=== PATIENT | male | born 1955 | race Caucasian/White ===

== ENCOUNTER 2016-08-13 13:00 | Outpatient (CLI) | payer OTHER ==
[~2016-08-13 13:00] MED LIST: ASPI-983 PO; ATOR80TA64 PO; CARV12.53 PO; CARV6.25 PO; CEPH500C PO; HYDR-3454 PO; TICA90TA PO
== END 2016-08-13 13:40 | disposition home or self-care (01) ==
LOC: SLEEP 13:00
PROVIDERS: ATTEND Internal Medicine Cardiovascular Disease
DX: G47.10 Hypersomnia, unspecified (principal)

== ENCOUNTER → 2016-08-23 | Outpatient (CLI) | payer OTHER ==
--- NOTE | 2016-08-26 19:57 | ECHOCARDIOGRAPHY REPORT ---
DATE OF SERVICE: 08/23/2016 PROCEDURE Two-D echocardiogram. REFERRING PHYSICIANS: Dr. Victoriano Estrada and Dr. Scotty Clifford. MEASUREMENT: LVID end-diastolic 5.1, IVS thickness 1.2, LVPW thickness 1.2, left atrial diameter 3.5, ejection fraction 60%. FINDINGS: 1. Technical quality is good. 2. The left ventricle is normal in size with normal contractility; systolic function appears to be normal, estimated ejection fraction 60%. 3. The left atrium is normal in size. No clot or thrombus was seen within the left atrium. 4. The right atrium and right ventricle are normal in size. No clot or thrombus was seen within the right side. 5. The mitral valve is normal in morphology with mild mitral regurgitation noted by color Doppler flow. No mitral valve prolapse, no mitral valve stenosis. 6. The aortic valve is trileaflet with normal opening and closing pattern, no significant aortic stenosis or regurgitation was seen. 7. The tricuspid valve is normal in morphology with mild tricuspid regurgitation noted by color Doppler flow. Doppler across tricuspid valve estimated pulmonary artery pressure of 21 plus right atrial pressure. 8. Pulmonic valve is functioning normally. 9. No pericardial effusion. CONCLUSIONS: 1. Normal left ventricular size and systolic function, estimated ejection fraction 60%. 2. Mild mitral and tricuspid regurgitation. 3. Estimated pulmonary artery pressure of 25 to 30 mmHg. Job ID: [id number] DocumentID: [id number] Dictated Date: 08/25/2016 07:50:19 Cottrell Operator Date: 08/25/2016 12:55:40 Dictated By: CONCHIS ALCOCER MD
== END ==
LOC: CARD 13:52
PROVIDERS: ATTEND Internal Medicine Cardiovascular Disease
DX: I47.2 Ventricular tachycardia (principal); I25.10 Atherosclerotic heart disease of native coronary artery without angina pectoris
CPT/HCPCS: 93306

== ENCOUNTER → 2017-01-30 | Outpatient (CLI) | payer OTHER ==
[~2017-01-30] VITALS: Ht 180.3 cm; Wt 94.3 kg
[~2017-01-30] MED LIST changes: +CATHETER FLUSH 10 ML SYR IV PRN
[2017-01-30 09:43] VITALS: BP 151/90
[2017-01-30 09:54] VITALS: BP 196/91
--- NOTE | 2017-01-31 08:01 | STRESS TEST ---
DATE OF SERVICE: 01/30/2017 EXERCISE MYOVIEW STRESS TEST REPORT Baseline heart rate is 53 baseline, blood pressure 154/88, baseline EKG is sinus rhythm with no ischemic changes. IN SUMMARY: The patient was injected with 10.13 mCi of technetium-99 Myoview and the resting images were obtained. Then, the patient started exercising with a baseline heart rate, blood pressure and EKG mentioned above. At minute 9 and 30 seconds, the patient was injected with 29.7 mCi of technetium-99 Myoview. He was able to exercise for a total of 10 minutes and 20 seconds on standard Leandro protocol, achieving maximum heart rate of 135 with blood pressure 196/91. With peak exercise level, EKG was showing abnormality involving [address] depression in II, III, aVF and [address] elevation in AVR and V1, [address] depression in V4, V5 and V6. During recovery, heart rate and blood pressure returned to baseline. EKG returned to baseline. The resting and stress images were reviewed and compared in the short axis, horizontal long axis, and vertical long axis views. Review of the images showed diaphragmatic attenuation with typical male pattern with no significant ischemia or infarction. SSS is 0. TID value is 0.97. On the gaited images, the left ventricle appeared to be normal size with normal contractility. Calculated ejection fraction 56%. IN CONCLUSION: 1. Excellent exercise tolerance a total of 10 minutes 20 seconds on standard Leandro protocol, achieving 95% of maximum expected heart rate, total of 12.1 METS. 2. EKG changes noted with peak exercise level mainly nondiagnostic. Returned to baseline during recovery. 3. Hypertensive response to exercise returned to baseline during recovery. 4. Diaphragmatic attenuation affecting the quality of the images, overall there is no significant ischemia on SPECT images. 5. Normal left ventricular size with normal contractility. Calculated ejection fraction 56%. Job ID: [id number] DocumentID: [id number] Dictated Date: 01/30/2017 15:29:21 Fundraising Specialist Date: 01/31/2017 00:37:06 Dictated By: CONCHIS ALCOCER MD
== END ==
LOC: CARD 07:43
PROVIDERS: ATTEND Internal Medicine Cardiovascular Disease
DX: I25.10 Atherosclerotic heart disease of native coronary artery without angina pectoris (principal); I48.0 Paroxysmal atrial fibrillation; I10 Essential (primary) hypertension; I47.2 Ventricular tachycardia; E78.2 Mixed hyperlipidemia; R06.02 Shortness of breath
CPT/HCPCS: 78452; 93017

== ENCOUNTER 2017-03-19 06:01 | Outpatient (CLI) | payer OTHER ==
[~2017-03-19] VITALS: Ht 180.3 cm; Wt 93.0 kg
[~2017-03-19 06:01] MED LIST changes: -CATHETER FLUSH 10 ML SYR IV PRN
[2017-03-19] MEDS ORDERED: LISI10TA2 PO (09:36)
[2017-03-19] MEDS ORDERED: CARV12.53 PO (09:36)
== END 2017-03-19 09:39 ==
LOC: PREOP 06:01
PROVIDERS: ATTEND Surgery
DX: Z01.818 Encounter for other preprocedural examination (principal); Z12.11 Encounter for screening for malignant neoplasm of colon

== ENCOUNTER 2017-03-25 09:23 | Day surgery (SDC) | payer OTHER ==
[~2017-03-25] VITALS: Ht 180.3 cm; Wt 93.0 kg
[~2017-03-25 09:23] MED LIST changes: +LISI10TA2 PO
[2017-03-25 09:35] VITALS: BP 129/90
[2017-03-25] MEDS ORDERED: LACTATED RINGERS 1,000 ML IV PRN (09:45)
[2017-03-25] MEDS ORDERED: LACTATED RINGERS 1,000 ML IV ONE (09:51)
[2017-03-25] MEDS ORDERED: MIDAZOLAM 2 MG/2 ML (VERSED) VIAL ONE (12:23)
[2017-03-25] MEDS ORDERED: proPOfol 200 MG/20 ML (DIPRIVAN) VIAL IV ONE (12:23)
--- NOTE | 2017-03-25 12:23 | Progress Note-Pre Operative ---
Pre-Operative Progress Note H&P Reviewed The H&P was reviewed, patient examined and no changes noted. Date Seen by Provider: Mar 25, 2017 Time Seen by Provider: 12:23 Date H&P Reviewed: Mar 25, 2017 Time H&P Reviewed: 12:23 Pre-Operative Diagnosis: screening colonoscopy ERICA BROUSSARD DO Mar 25, 2017 12:23
--- NOTE | 2017-03-25 12:41 | Progress Note-Post Operative ---
Post-Operative Progess Note Surgeon (s)/Cytogenetic Technician (s) Surgeon ERICA BROUSSARD DO Cytogenetic Technician: na Pre-Operative Diagnosis screening colonoscopy Post-Operative Diagnosis diverticulosis Procedure & Operative Findings Date of Procedure 03/25/17 Procedure Performed/Findings colonoscopy Anesthesia Type per [facility] Estimated Blood Loss Estimated blood loss (mL): none Specimens/Packing Specimens Removed na EIRCA BROUSSARD DO Mar 25, 2017 12:41
--- NOTE | 2017-03-25 12:42 | Discharge Inst-Simple/Standard ---
Discharge Inst-Standard Patient Instructions/Follow Up Plan of Care/Instructions/FU: 5 years repeat colonoscopy, any problems before that be re-evaluated at that time. Activity as Tolerated: Yes Discharge Diet: Regular Diet (high fiber) ERICA BROUSSARD DO Mar 25, 2017 12:42
[2017-03-25 13:15] VITALS: BP 122/63
[2017-03-25 13:40] VITALS: BP 127/75
--- NOTE | 2017-03-26 04:05 | OPERATIVE REPORT ---
DATE OF SERVICE: 03/25/2017 PREOPERATIVE DIAGNOSIS: Screening colonoscopy. POSTOPERATIVE DIAGNOSIS: Diverticulosis. PROCEDURE: Colonoscopy. ANESTHESIA: Per MDA. ESTIMATED BLOOD LOSS: None. COMPLICATIONS: None. INDICATIONS: The patient is a 62-year-old male in need for screening colonoscopy. He has history of colon polyps. He understands risks and benefits and wished to proceed with procedure. Consent was signed in the chart. DESCRIPTION OF PROCEDURE: The patient was taken to the endoscopy suite, placed in left lateral recumbent position. Timeout was performed. Digital rectal exam was performed and there were no palpable polyps, mass or ulcerations. The scope was inserted in the rectum and advanced all the way to the cecum with minimal difficulty. The prep was adequate. Scope was then slowly retracted back. No polyps, masses or ulcerations in the cecum, ascending, transverse, descending colon. Within the descending and sigmoid colon, a fair amount of diverticulosis is present. There are no polyps, masses or ulcerations. Scope was continued to be withdrawn until the rectum where it was also retroflexed noting no other pathology. Scope was returned to its normal position, slowly withdrawn until completely removed. The patient tolerated procedure well without any complications. He was taken to the recovery room in stable condition. RECOMMENDATIONS: The patient will need repeat colonoscopy in 5 years. If he has any problems prior to that, he should be reevaluated at that time. He is also recommended to eat a high fiber diet. Job ID: [id number] DocumentID: [id number] Dictated Date: 03/25/2017 21:29:04 Galvanizer Date: 03/26/2017 04:04:33 Dictated By: ERICA BROUSSARD DO
== END 2017-03-25 13:45 | disposition home or self-care (01) ==
LOC: ENDO 09:23
PROVIDERS: ATTEND Surgery
DX: Z12.11 Encounter for screening for malignant neoplasm of colon (principal); K57.30 Diverticulosis of large intestine without perforation or abscess without bleeding; Z79.02 Long term (current) use of antithrombotics/antiplatelets; Z79.899 Other long term (current) drug therapy; Z79.82 Long term (current) use of aspirin; I48.91 Unspecified atrial fibrillation; I25.10 Atherosclerotic heart disease of native coronary artery without angina pectoris; I10 Essential (primary) hypertension; E78.5 Hyperlipidemia, unspecified

== ENCOUNTER → 2019-02-20 | Outpatient (CLI) | payer MEDICARE, OTHER ==
[~2019-02-20] MED LIST changes: -HYDR-3454 PO; +HYDR-3455 PO; +OXYC-471 PO
--- NOTE | 2019-02-20 19:01 | Diagnostic Imaging Report ---
EXAMINATION: Magnetic resonance imaging of the left shoulder without contrast. DATE: February 20, 2019. COMPARISON: None. HISTORY: 63-year-old male, left shoulder pain. TECHNIQUE: Magnetic resonance imaging sequences were performed of the shoulder without contrast. FINDINGS: ROTATOR CUFF, LIGAMENTS, TENDONS, AND MUSCLES: There are two anchors in the superior humeral head in the region of the supraspinatus tendon insertion, consistent with prior rotator cuff tendon repair. There is a full-thickness tear of the supraspinatus tendon with tendon retraction near the level of the glenoid measuring 4.0 cm. There is infraspinatus tendinopathy. The teres minor tendon is intact. There is thinning of the subscapularis tendon and likely an interstitial split tear of the subscapularis tendon. There is normal rotator cuff muscle bulk and signal. LONG HEAD OF BICEPS: The long head of biceps tendon is not well seen either in the bicipital groove or in its intra-articular segment. The long head biceps tendon may potentially be torn and retracted below the level of the bicipital groove. GLENOHUMERAL JOINT: The humeral head is well positioned relative to the glenoid. Sensitivity for detection of labral tear is reduced given lack of fluid sensitive axial sequence. There is no definite discrete labral tear. There is no identified paralabral cyst. There is a 2-3 mm focal near full-thickness cartilage defect of the humeral head best illustrated on coronal T2 fat saturation sequence image 11. The additional articular cartilage is grossly intact. There is no joint effusion. ACROMIOCLAVICULAR JOINT: The acromioclavicular joint is normally aligned. The coracoclavicular and coracoacromial ligaments are intact. There are moderate acromioclavicular degenerative changes with osteophytes extending approximately 2 mm below the joint margin. BONE: There is no os acromiale. There is no acute fracture, bone contusion or evidence of osteonecrosis. BURSAE AND SOFT TISSUES: There is fluid in the subacromial subdeltoid bursa which may relate to the full-thickness rotator cuff tendon tear, bursitis, and/or recent injection. IMPRESSION: 1. Status post rotator cuff tendon repair of the supraspinatus tendon with a full-thickness full width tear of the supraspinatus tendon and tendon retraction near the level of the glenoid measuring 4.0 cm. No fatty muscle atrophy. Interstitial split tear of the subscapularis tendon. Infraspinatus tendinopathy. 2. The long head biceps tendon is not identified in its intra-articular segment or within the bicipital groove. The tendon may be torn and retracted below the level of the bicipital groove. 3. Mild acromioclavicular degenerative changes with 2 mm undersurface osteophytes. 4. Grossly intact labrum on limited assessment. Focal cartilage defect of the humeral head and minimal glenohumeral arthritis. 5. No acute fracture, bone contusion or evidence of osteonecrosis. 6. Fluid in the subacromial subdeltoid bursa correlating to the full-thickness rotator cuff tendon tear, bursitis, and/or recent injection. Dictated by: Dictated on workstation # [id number]
== END ==
LOC: RAD 15:25
PROVIDERS: ATTEND Orthopaedic Surgery
DX: M75.122 Complete rotator cuff tear or rupture of left shoulder, not specified as traumatic (principal); M19.012 Primary osteoarthritis, left shoulder; M25.712 Osteophyte, left shoulder; M94.8X1 Other specified disorders of cartilage, shoulder; Z98.890 Other specified postprocedural states
CPT/HCPCS: 73221

== ENCOUNTER → 2019-03-11 | Outpatient (CLI) | payer MEDICARE, OTHER ==
[~2019-03-11] VITALS: Ht 180 cm; Wt 96.0 kg
[~2019-03-11] MED LIST changes: +CATHETER FLUSH 10 ML SYR IV PRN; -OXYC-471 PO
[2019-03-11 14:02] VITALS: BP 213/76
--- NOTE | 2019-03-12 09:21 | STRESS TEST ---
DATE OF SERVICE: 03/11/2019 EXERCISE MYOVIEW STRESS TEST REPORT Baseline heart rate is 59, baseline blood pressure 147/80. Baseline EKG is sinus rhythm with no ischemic changes. In summary, the patient was injected with 10.84 mCi of technetium-99 Myoview and the resting images were obtained. Then, he started exercising with a baseline heart rate, blood pressure and EKG mentioned above. He was able to exercise for 9 minutes and 50 seconds on standard Leandro protocol. With peak exercise level, EKG was showing [address] depression in II, III, aVF, V4, V5 and V6. With peak exercise level, blood pressure was 233/61. The patient was injected with 30.0 mCi of technetium-99 Myoview. During recovery, heart rate and blood pressure returned to baseline. EKG returned to baseline. The resting and stress images were reviewed and compared in the short axis, horizontal long axis, and vertical long axis views. Review of the images showed good radiotracer uptake with no significant ischemia or infarction on SPECT images. SSS is 2, SDS 2, TID value 0.97. On the gated images, the left ventricle appeared to be normal size with normal contractility. Calculated ejection fraction 62%. REFERRING PHYSICIAN: Dr. Scotty Clifford and Dr. Harley Fox. CONCLUSION: 1. Excellent exercise tolerance for a total of 9 minutes and 50 seconds on standard Leandro protocol, total of 11.3 METS. Achieving 96% of maximum expected heart rate. 2. Hypertensive response to exercise, returned to baseline during recovery with peak blood pressure 233/61. 3. Nondiagnostic EKG changes with exercise returned to baseline during recovery. 4. Diaphragmatic attenuation with typical male pattern with no significant ischemia or infarction on SPECT images. 5. Normal left ventricular size with normal contractility. Calculated ejection fraction is 62%. Job ID: [id number] DocumentID: [id number] Dictated Date: 03/12/2019 06:52:36 Hydraulic Jack Operator Date: 03/12/2019 09:20:13 Dictated By: CONCHIS ALCOCER MD
== END ==
LOC: CARD 12:15
PROVIDERS: ATTEND Physician Assistant
DX: I25.10 Atherosclerotic heart disease of native coronary artery without angina pectoris (principal); E78.5 Hyperlipidemia, unspecified; I10 Essential (primary) hypertension; I48.91 Unspecified atrial fibrillation
CPT/HCPCS: 78452; 93017; 93306

== ENCOUNTER 2019-04-02 13:24 | Outpatient (CLI) | payer MEDICARE, OTHER ==
[~2019-04-02] VITALS: Ht 180 cm; Wt 98.3 kg
[~2019-04-02 13:24] MED LIST changes: -CATHETER FLUSH 10 ML SYR IV PRN
[2019-04-02 13:33] VITALS: BP 114/70
== END 2019-04-02 13:42 | disposition home or self-care (01) ==
LOC: PREOP 13:24
PROVIDERS: ATTEND Orthopaedic Surgery
DX: Z01.818 Encounter for other preprocedural examination (principal)
CPT/HCPCS: 87081

== ENCOUNTER 2019-04-08 08:31 | Day surgery (SDC) | payer MEDICARE, OTHER ==
--- NOTE | 2019-03-26 12:16 | HISTORY AND PHYSICAL ---
DATE OF SERVICE: ADMISSION HISTORY AND PHYSICAL This will be for outpatient surgery on 04/08/2019 for left shoulder arthroscopy with rotator cuff repair. HISTORY: The patient is a 64-year-old right hand dominant gentleman who previously underwent left rotator cuff repair. He has been having progressive left shoulder pain and weakness for the last several months. He has undergone treatment with injections as well as rest and activity modifications. Due to functional impairment and failure to improve with conservative measures, the patient elected to proceed with surgical intervention. An MRI revealed a 4 cm retracted supraspinatus tear. REVIEW OF SYSTEMS: No chest pain, no shortness of breath, no dysuria. PAST MEDICAL HISTORY: Coronary artery disease, actinic keratosis, hypertension. PAST SURGICAL HISTORY: Left cardiac catheterization, implantable manufacturing plant technician. FAMILY HISTORY: Significant for stroke and lung cancer. PRIMARY CARE PROVIDER: Dr. Clifford. MEDICATIONS: Aspirin, atorvastatin, carvedilol, lisinopril. ALLERGIES: No known drug allergies. SOCIAL HISTORY: The patient denies alcohol and tobacco use. PHYSICAL EXAMINATION: GENERAL: The patient is well developed, well nourished, in no acute distress. HEENT: Normocephalic, atraumatic. Pupils are equal, round and reactive to light. Oropharynx is clear. NECK: Supple, no lymphadenopathy. LUNGS: Clear to auscultation bilaterally. HEART: Regular rate and rhythm. ABDOMEN: Soft, nontender, nondistended. EXTREMITIES: The left shoulder demonstrates weakness with abduction and external rotation. He has full forward elevation, external and internal rotation, but positive Neer's and positive Hawkin sign. He has negative drop arm. He has negative Spurling's. Sensation is intact throughout his left upper extremity. IMPRESSION: Left rotator cuff tear. PLAN: Left shoulder arthroscopy with rotator cuff repair. The risks, benefits, options, ramifications and recovery were discussed at length with the patient. He understands and wishes to proceed. Job ID: [id number] DocumentID: [id number] Dictated Date: 03/26/2019 11:39:59 Surveillance Agent Date: 03/26/2019 12:14:49 Dictated By: SANTOS BOLAÑOS MD
[2019-04-08] VITALS (12 sets, daily range): BP systolic 101–152; BP diastolic 67–94
[~2019-04-08] VITALS: Ht 180 cm; Wt 98.3 kg
[2019-04-08] MEDS ORDERED: ceFAZolin INJECTION 1,000 MG in WATER (STERILE) FOR INJECTION 10 ML IV ONE (08:45)
[2019-04-08] MEDS ORDERED: BUPIVACAINE 0.25% 30 ML (SENSORCAINE) VIAL ONE ×2 (08:52→09:22)
[2019-04-08] MEDS ORDERED: fentaNYL INJECTION 100 MCG/2 ML AMP ONE (08:52)
[2019-04-08] MEDS ORDERED: MIDAZOLAM 2 MG/2 ML (VERSED) VIAL ONE (08:54)
[2019-04-08] MEDS: LACTATED RINGERS 1,000 ML IV PRN ×2 (09:00→10:47)
--- NOTE | 2019-04-08 09:15 | Progress Note-Pre Operative ---
Pre-Operative Progress Note H&P Reviewed The H&P was reviewed, patient examined and no changes noted. Date Seen by Provider: Apr 08, 2019 Time Seen by Provider: 09:00 Date H&P Reviewed: Apr 08, 2019 Time H&P Reviewed: 09:15 Pre-Operative Diagnosis: left rotator cuff tear SANTOS BOLAÑOS MD Apr 08, 2019 09:15
--- NOTE | 2019-04-08 09:16 | Progress Note-Post Operative ---
Post-Operative Progess Note Surgeon (s)/Customer Service Sales Consultant (s) Surgeon SANTOS BOLAÑOS MD Customer Service Sales Consultant: Nicholas Hogan Pre-Operative Diagnosis left rotator cuff tear Post-Operative Diagnosis left rotator cuff tear Procedure & Operative Findings Date of Procedure 04/08/19 Procedure Performed/Findings left shoulder diagnostic arthroscopy and open rotator cuff repair Anesthesia Type GETA Estimated Blood Loss Estimated blood loss (mL): minimal Specimens/Packing Specimens Removed none Packing: none SANTOS BOLAÑOS MD Apr 08, 2019 09:16
[2019-04-08] MEDS ORDERED: morphine PF (DURAMORPH) 10 MG/10 ML AMP ONE (09:22)
[2019-04-08] MEDS ORDERED: oxyCODONE/APAP 5/325MG (PERCOCET 5) TABLET PO PRN (09:30)
[2019-04-08] MEDS ORDERED: proPOfol 200 MG/20 ML (DIPRIVAN) VIAL IV ONE (10:26)
[2019-04-08] MEDS ORDERED: ROCURONIUM 10 MG/ML 5 ML SYRINGE IV ONE (10:26)
[2019-04-08] MEDS ORDERED: LIDOCAINE PF 2% 5 ML (XYLOCAINE) VIAL ONE (10:26)
[2019-04-08] MEDS ORDERED: SEVOFLURANE (ULTANE) 15 ML INHAL SOLN ONE ×8 (10:26→11:59)
[2019-04-08] MEDS ORDERED: PHENYLEPHRINE 100 MCG/ML 10 ML (ANESTHESIA) SYR ONE (11:32)
[2019-04-08] MEDS ORDERED: OXYC-471 PO (12:24)
[2019-04-08] MEDS ORDERED: CATHETER FLUSH 10 ML SYR IV PRN (15:00)
--- NOTE | 2019-04-08 19:32 | OPERATIVE REPORT ---
DATE OF SERVICE: PREOPERATIVE DIAGNOSIS: Left shoulder rotator cuff tear. POSTOPERATIVE DIAGNOSIS: Left shoulder rotator cuff tear. PROCEDURES: 1. Left shoulder open rotator cuff repair. 2. Left shoulder diagnostic arthroscopy. SURGEON: Harley Bolaños MD PRE FABRICATOR: ARIANNA Aranda, who assisted throughout the procedure and closed the incisions. ANESTHESIA: General endotracheal plus interscalene nerve block by Arlette Fatima CRNA. ESTIMATED BLOOD LOSS: Minimal. DRAINS: None. COMPLICATIONS: None. POSTOPERATIVE PLAN: Routine protocol with passive range of motion for 4 weeks and sling wear for 4 weeks. The patient was transferred to the recovery room awake and stable condition. STATEMENT OF MEDICAL NECESSITY: The patient is a 64-year-old right hand dominant gentleman who previously underwent left rotator cuff repair who had been doing well until the last several months when he began experiencing increasing shoulder pain and weakness. An MRI confirmed a left rotator cuff tear. He tried injections, anti-inflammatories and rest without relief and due to functional impairment and failure to improve with conservative measures, the patient elected to proceed with surgical intervention. Examination under anesthesia revealed forward elevation of 170 degrees, external rotation of 90 degrees and internal rotation of 80 degrees. Arthroscopic findings demonstrated a full thickness supraspinatus tear with retraction involving the superior aspect of the supraspinatus and subscapularis. The biceps anchor was absent. There was no significant glenoid or humeral head articular wear. DESCRIPTION OF PROCEDURE: After risks and benefits of procedure were discussed and questions were answered, an informed consent was signed and placed on chart, the operative site was confirmed in the preoperative holding area initialed by the surgeon. The patient was then transferred to the operating room. After adequate levels of regional plus general endotracheal anesthetic were obtained, a timeout was called, confirming the operative site. Examination under anesthesia was performed with above findings noted. The left shoulder and upper extremity were prepped and draped in the usual sterile fashion. Shoulder joint was injected with 20 mL of fluid and standard posterior portal was placed. A diagnostic arthroscopy was carried out with the above findings noted. The shoulder joint was copiously irrigated and the portal sites were closed with 4-0 nylon in simple interrupted fashion. The previous incision was utilized on the lateral aspect of the shoulder. Previous sutures were placed and the deltoid were removed and a deltoid split was performed. The rotator cuff tear was mobilized and two anchors were placed, which brought the posterior leaf and the anterior leaf superiorly into an anatomic position with an excellent repair obtained. This was performed using modified Patrice-Pb repair. The repair was stable. The wound was copiously irrigated. The deltoid was repaired in a [id number] fashion using #2 FiberWire in [id number] interrupted fashion. The wound was further irrigated. A 3-0 Vicryl was used to reapproximate subcutaneous tissue and skin was closed with 4-0 nylon in a running alternating horizontal mattress fashion. Shoulder joint was injected with Duramorph. The portal sites were infiltrated with plain Marcaine and soft dressing and sling were applied. The patient was transferred to the recovery room awake and in stable condition. Job ID: [id number] DocumentID: [id number] Dictated Date: 04/08/2019 11:04:08 Exploration Geologist Date: 04/08/2019 19:31:59 Dictated By: HARLEY BOLAÑOS MD
--- NOTE | 2019-04-09 10:22 | Anesthesia-General Post-Op ---
General Post Op Complications Complications None Follow Up Care/Instructions Patient Instructions None needed. Anesthesia/Patient Condition Patient Condition late note from 04/08/19 at 1300: Patient is doing well, no complaints, stable vital signs, no apparent adverse anesthesia problems. No complications reported per nursing, thus the patient was discharged to home. JEWELL JUAREZ CRNA Apr 09, 2019 10:22
== END 2019-04-08 14:00 | disposition home or self-care (01) ==
LOC: SDC 08:31
PROVIDERS: ATTEND Orthopaedic Surgery
DX: S46.012A Strain of muscle(s) and tendon(s) of the rotator cuff of left shoulder, initial encounter (principal); I25.10 Atherosclerotic heart disease of native coronary artery without angina pectoris; I10 Essential (primary) hypertension; E78.5 Hyperlipidemia, unspecified; Z79.82 Long term (current) use of aspirin; Z95.1 Presence of aortocoronary bypass graft; Z79.899 Other long term (current) drug therapy; Z80.1 Family history of malignant neoplasm of trachea, bronchus and lung; Z82.3 Family history of stroke

== ENCOUNTER → 2020-01-08 | Outpatient (CLI) | payer MEDICARE, OTHER ==
[~2020-01-08] MED LIST changes: +ASPI-1238 PO; -ASPI-983 PO; +OXYC-471 PO
--- NOTE | 2020-01-08 14:13 | Diagnostic Imaging Report ---
PROCEDURE: CT lumbar spine without contrast. TECHNIQUE: Multiple contiguous axial images were obtained through the lumbar spine without the use of intravenous contrast. Sagittal and coronal reformations were then performed. Auto Exposure Controls were utilized during the CT exam to meet ALARA standards for radiation dose reduction. INDICATION: Left-sided sciatica. COMPARISON: No prior studies are available for comparison. FINDINGS: There is some straightening of the normal lumbar lordotic curvature. Alignment appears normal. Vertebral body heights are maintained. No fracture is identified. There is generalized degenerative disc disease with variable disc space narrowing and marginal spurring. It is most prominent at L4-L5 level. There are reactive changes in the endplates at the L2-L3 and L4-L5 levels. Paraspinous tissues are unremarkable. IMPRESSION: Lumbar spondylosis. No acute bony abnormality is detected. Dictated by: Dictated on workstation # [id number]
== END ==
LOC: RAD 12:47
PROVIDERS: ATTEND Internal Medicine
DX: M47.816 Spondylosis without myelopathy or radiculopathy, lumbar region (principal)
CPT/HCPCS: 72131

== ENCOUNTER → 2020-05-23 | Outpatient (CLI) | payer MEDICARE, OTHER ==
[~2020-05-23] VITALS: Ht 180 cm; Wt 91.0 kg
[~2020-05-23] MED LIST changes: +BAMLANIVIMAB (NON FORM) 700 MG in NS (IVPB) 250 ML IV ONE; +EPINEPHrine INJECTION 1 MG/ML AMP IM PRN; -LISI10TA2 PO; +LISI10TA25 PO; -OXYC-471 PO; +OXYC1TAB11 PO; +diphenhydrAMINE 50 MG/ML INJ (BENADRYL) IV PRN
[2020-05-23 12:57] VITALS: BP 164/88
[2020-05-23 14:54] VITALS: BP 140/88
== END ==
LOC: INFUSION 12:57
PROVIDERS: ATTEND Physician Assistant
DX: U07.1 COVID-19 (principal); I25.10 Atherosclerotic heart disease of native coronary artery without angina pectoris; I10 Essential (primary) hypertension

== ENCOUNTER 2021-02-02 07:00 | Outpatient (CLI) | payer MEDICARE, OTHER ==
[~2021-02-02] VITALS: Ht 180.3 cm; Wt 91.0 kg
[~2021-02-02 07:00] MED LIST changes: -BAMLANIVIMAB (NON FORM) 700 MG in NS (IVPB) 250 ML IV ONE; -EPINEPHrine INJECTION 1 MG/ML AMP IM PRN; -diphenhydrAMINE 50 MG/ML INJ (BENADRYL) IV PRN
[2021-02-06] MEDS ORDERED: APIX5TAB PO (11:35)
[2021-02-06] MEDS ORDERED: ASCO500C17 PO (11:36)
[2021-02-06] MEDS ORDERED: ROSU10TA28 PO (11:38)
== END 2021-02-08 14:49 | disposition home or self-care (01) ==
LOC: PREOP 07:00
PROVIDERS: ATTEND Specialist
DX: Z01.818 Encounter for other preprocedural examination (principal)

== ENCOUNTER 2021-02-10 06:01 | Day surgery (SDC) | payer MEDICARE, OTHER ==
[~2021-02-10] VITALS: Ht 180.3 cm; Wt 91.0 kg
[~2021-02-10 06:01] MED LIST changes: +APIX5TAB PO; +ASCO500C17 PO; +ROSU10TA28 PO
[2021-02-10] MEDS ORDERED: POVIDONE (BETADINE) OPHTH SOLN 5% 30 ML OP ONE (06:15)
[2021-02-10] MEDS ORDERED: MOXIFLOXACIN OPHTH SOLN 5 MG/ML 0.3 ML SYRINGE OP ONE (06:15)
[2021-02-10] MEDS ORDERED: LIDOCAINE PF 1% 2 ML VIAL IR PRN (06:15)
[2021-02-10] MEDS ORDERED: TIMOLOL MALEATE 0.5% 5 ML (TIMOPTIC) BTL OU PRN (06:15)
[2021-02-10 06:16] VITALS: BP 157/88
[2021-02-10] MEDS: TETRACAINE 0.5% OPHTH SOLN 4 ML BTL (SINGLE DOSE ONLY) OU PRN ×4 (06:24→06:48)
[2021-02-10] MEDS: PHENYLEPHRINE 10% OPHTH (NEO-SYN) 5 ML BTL OU SCH ×3 (06:37→06:48)
[2021-02-10] MEDS: TROPICAMIDE 1% OPH SOLN (MYDRIACYL) 15 ML BTL OP SCH ×3 (06:37→06:48)
[2021-02-10] MEDS ORDERED: MIDAZOLAM 2 MG/2 ML (VERSED) VIAL ONE (06:50)
--- NOTE | 2021-02-10 06:52 | Ophthalmologist Pre-Op Note ---
Pre-Operative Progress Note H&P Reviewed The H&P was reviewed, patient examined and no changes noted. Date H&P Reviewed: Feb 10, 2021 Time H&P Reviewed: 06:52 Pre-Op Dx Cataract, Right Eye JEFF MCCALLUM MD Feb 10, 2021 06:52
--- NOTE | 2021-02-10 07:24 | Ophthalmology Operative Report ---
Cataract removal/placement IOL PREOPERATIVE DIAGNOSIS: Cataract Right Eye POSTOPERATIVE DIAGNOSIS: Cataract Right Eye PROCEDURE: Cataract removal and placement of posterior chamber implant, right eye SURGEON: Sonny Mccallum ANESTHESIA: Topical with sedation COMPLICATIONS: None ESTIMATED BLOOD LOSS: Minimal DESCRIPTION OF PROCEDURE: After proper informed consent was obtained, the patient, a 65 male, was taken to the Operating Room and the right eye was anesthetized with tetracaine. The right eye was then prepped and draped in the usual manner. A wire lid speculum was placed. A paracentesis was made at the left hand position. Preservative free lidocaine was injected into the anterior chamber followed by viscoelastic. A clear corneal incision was made in the temporal position. A capsulorrhexis was preformed and the central nuclear and cortical material were removed. The posterior capsule was polished and Redd 20.0 AU00T0 IOL was placed into the capsular bag. The residual viscoelastic was aspirated and balanced saline solution was injected into the anterior chamber. Moxifloxacin was injected into the anterior chamber. The wound was checked and found to be water tight. The patient tolerated the procedure well without complications. SONNY MCCALLUM MD Feb 10, 2021 07:24
--- NOTE | 2021-02-10 07:28 | Anesthesia-General Post-Op ---
MAC Patient Condition Mental Status/LOC: Same as Preop Cardiovascular: Satisfactory Nausea/Vomiting: Absent Respiratory: Satisfactory Pain: Controlled Complications: Absent Post Op Complications Complications None Follow Up Care/Instructions Patient Instructions None needed. Anesthesiology Discharge Order Discharge Order Patient is doing well, no complaints, stable vital signs, no apparent adverse anesthesia problems. No complications reported per nursing. IRON COMBS CRNA Feb 10, 2021 07:28
[2021-02-10] MEDS ORDERED: acetaZOLAMIDE ER 500 MG CAP (DIAMOX SEQUELS) PO ONE (07:30)
[2021-02-10 07:33] VITALS: BP 127/78
== END 2021-02-10 07:35 | disposition home or self-care (01) ==
LOC: SDC 06:01
PROVIDERS: ATTEND Specialist
DX: H25.11 Age-related nuclear cataract, right eye (principal); I10 Essential (primary) hypertension; E78.00 Pure hypercholesterolemia, unspecified; E78.5 Hyperlipidemia, unspecified; I25.119 Atherosclerotic heart disease of native coronary artery with unspecified angina pectoris; Z95.5 Presence of coronary angioplasty implant and graft; Z79.01 Long term (current) use of anticoagulants; Z79.82 Long term (current) use of aspirin; Z79.899 Other long term (current) drug therapy
CPT/HCPCS: 66984; V2632

== ENCOUNTER → 2021-09-05 | Outpatient (CLI) | payer MEDICARE, OTHER | LOC: CARD 08:41 | PROVIDERS: ATTEND Physician Assistant | DX: I11.9 Hypertensive heart disease without heart failure (principal); I34.0 Nonrheumatic mitral (valve) insufficiency | CPT/HCPCS: 93306 ==

== ENCOUNTER 2021-09-06 09:30 | Day surgery (SDC) | payer MEDICARE, OTHER ==
[~2021-09-06] VITALS: Ht 180 cm; Wt 88.0 kg
[~2021-09-06 09:30] MED LIST changes: +LIDOCAINE 1% INJ 20 ML VIAL INJ ONE
[2021-09-06 09:42] VITALS: BP 121/75
[2021-09-06] MEDS ORDERED: LIDOCAINE 1% INJ 20 ML VIAL ONE (10:08)
--- NOTE | 2021-09-06 10:53 | Implantation of Loop Monitor ---
Implant of Loop Monitior IMPLANTATION OF LOOP MONITOR REPORT DATE OF PROCEDURE: 09/06/21 PREOP DIAGNOSIS: Paroxysmal atrial fibrillation POSTOP DIAGNOSIS: Paroxysmal atrial fibrillation PROCEDURE DETAILS: The patient is a 66 male with history of paroxysmal atrial fibrillation requiring long-term surveillance. Therefore implantable loop recorder was discussed and agreed with the patient. Informed consent was taken. All risks and complications were discussed at length. The patient was draped and prepped in the usual sterile fashion. Local anesthesia was lidocaine, which was given in the substernal area close to the 4th intercostal space. Loop monitor [employer] with serial number [id number] was implanted according to the protocol. Steri- Strips were placed at the end of the procedure. There were no complications and the patient tolerated the procedure well. ANESTHESIA: Local anesthesia with lidocaine. COMPLICATIONS: None CONTRAST/FLUOROSCOPY: None CONCLUSION: Successful implantation of loop monitor with no complication FINAL DIAGNOSIS: Paroxysmal atrial fibrillation Palpitation Hypertension CONCHIS ALCOCER MD September 06, 2021 10:53
== END 2021-09-06 11:34 | disposition home or self-care (01) ==
LOC: CATH 09:30
PROVIDERS: ATTEND Internal Medicine Cardiovascular Disease
DX: I48.0 Paroxysmal atrial fibrillation (principal); R00.2 Palpitations; I10 Essential (primary) hypertension; I65.23 Occlusion and stenosis of bilateral carotid arteries; I25.10 Atherosclerotic heart disease of native coronary artery without angina pectoris; E78.2 Mixed hyperlipidemia; E66.9 Obesity, unspecified; Z68.27 Body mass index [BMI] 27.0-27.9, adult; Z95.5 Presence of coronary angioplasty implant and graft; Z79.01 Long term (current) use of anticoagulants; Z79.899 Other long term (current) drug therapy; Z79.82 Long term (current) use of aspirin
CPT/HCPCS: 33285; C1764

== ENCOUNTER → 2021-10-09 | Outpatient (CLI) | payer MEDICARE, OTHER ==
[~2021-10-09] VITALS: Ht 180 cm; Wt 88.0 kg
[~2021-10-09] MED LIST changes: +CATHETER FLUSH 10 ML SYR IVP PRN; -LIDOCAINE 1% INJ 20 ML VIAL INJ ONE
[2021-10-09 09:54] VITALS: BP 170/95
--- NOTE | 2021-10-09 12:06 | Cardiology Stress Test Report ---
Stress Test Report Date of Procedure/Referring: Date of Procedure: Oct 09, 2021 PCP Taylor Clifford DO Admitting Physician Admitting Physician: Attending Physician: Yesenia Payton Indications: Palp Baseline Heart Rate: 55 Baseline Blood Pressure: Blood Pressure Systolic: 170 Blood Pressure Diastolic: 95 Vital Signs Date Time Temp Pulse Resp B/P (MAP) Pulse Ox O2 Delivery O2 Flow Rate FiO2 10/09/21 09:54 52 16 170/95 (120) 98 Room Air Baseline Vital Signs Vital Signs Date Time Temp Pulse Resp B/P (MAP) Pulse Ox O2 Delivery O2 Flow Rate FiO2 10/09/21 09:54 52 16 170/95 (120) 98 Room Air Baseline EKG: Baseline EKG: NSR Summary: After explaining the procedure and details to the patient, he signed the consent and was brought to the stress nuclear laboratory. Patient exercised on standard Leandro protocol, EKG, heart rate and blood pressure were monitored continuously, resting and stress doses of radio tracer were in jected, imaging was acquired and reviewed in the short axis, horizontal long axis and vertical long axis views Patient was able to exercise for a total of 9 minutes on Leandro protocol, METs 10.5 Maximum heart rate 126 Maximum blood pressure 218/105 Stress EKG, Minimal nondiagnostic changes Recovery EKG, Return to baseline TID: 0.99 SSS: 1 SDS: 1 EF: 64 Conclusion: 1. Fair exercise tolerance for a total of 9 minutes on standard Leandro protocol, 10.1 METS achieving 82% of maximal expected heart rate 2. Appropriate heart rate response to exercise with hypertensive response to exercise peak blood pressure 218/105 return to baseline during recovery 3. Nondiagnostic EKG changes with exercise return to baseline during recovery 4. No ischemia or infarction noted on SPECT images 5. Normal left ventricular size, ejection fraction 64% Copy Copies To 1: TAYLOR CLIFFORD BASHAR J MD Oct 09, 2021 12:06
== END ==
LOC: CARD 08:15
PROVIDERS: ATTEND Physician Assistant
DX: R00.2 Palpitations (principal); I10 Essential (primary) hypertension
CPT/HCPCS: 78452; 93017; A9502

== ENCOUNTER 2022-01-10 04:12 | Observation (INO) | payer MEDICARE, OTHER ==
[~2022-01-10] VITALS: Ht 180.3 cm; Wt 92.6 kg
[~2022-01-10 04:12] MED LIST changes: -CATHETER FLUSH 10 ML SYR IVP PRN
--- NOTE | 2022-01-10 04:37 | ED General ---
General Chief Complaint: Chest Pain Stated Complaint: CP Source of Information: Patient Exam Limitations: No Limitations (ANN-MARIE PARDO DO) History of Present Illness Date Seen by Provider: Jan 10, 2022 Time Seen by Provider: 04:24 Initial Comments 66-year-old male with history of intermittent paroxysmal atrial fibrillation, has a Linq device implanted presents for palpitations. He states he felt his heart racing since about 9 PM last night. He is actually close to calling an ambulance due to his symptoms but ended up driving here this morning instead. During his drive here his symptoms seem to have abated. Denies any chest pain or shortness of breath. He did have some palpitations and some lightheadedness during the time of his symptoms. He denies any recent illness including fevers chills nausea or vomiting. Does have remote history of cardiac stents about 5 years ago. He is taking Xarelto as his advised that she will episode of atrial fibrillation back in November. He was previously on amiodarone but stopped this after cataract surgery in November of last year. (ANN-MARIE PARDO DO) Allergies and Home Medications Allergies Coded Allergies: No Known Drug Allergies (Verified , 03/25/17) Patient Home Medication List Home Medication List Reviewed: Yes (ANN-MARIE PARDO DO) Apixaban (Eliquis) 5 Mg Tablet, 5 MG PO BID, (Reported) Entered as Reported by: SANDOR BRAGA on 02/06/21 1135 Ascorbic Acid (Vitamin C) 500 Mg Capsule, 500 MG PO, (Reported) Entered as Reported by: SANDOR BRAGA on 02/06/21 1136 Aspirin (Aspirin EC) 81 Mg Tablet.dr, 81 MG PO DAILY, (Reported) Entered as Reported by: VICKI BRIGHT on 02/15/16 0837 Carvedilol (Carvedilol) 12.5 Mg Tablet, 12.5 MG PO BID, (Reported) Entered as Reported by: SAMMY CASPER on 03/19/17 0936 Lisinopril (Lisinopril) 10 Mg Tablet, 10 MG PO DAILY, (Reported) Entered as Reported by: SAMMY CASPER on 03/19/17 0936 Rosuvastatin Calcium (Rosuvastatin Calcium) 10 Mg Tablet, 10 MG PO DAILY, (Reported) Entered as Reported by: SANDOR BRAGA on 02/06/21 1138 Review of Systems Review of Systems Constitutional: no symptoms reported EENTM: no symptoms reported Respiratory: no symptoms reported Cardiovascular: palpitations Gastrointestinal: no symptoms reported Genitourinary: no symptoms reported Musculoskeletal: no symptoms reported Skin: no symptoms reported Psychiatric/Neurological: No Symptoms Reported Hematologic/Lymphatic: No Symptoms Reported Immunological/Allergic: no symptoms reported (CHAR,ANN-MARIE Laura KILPATRICK) Past Auwcasm-Npfpzs-Vbzlwf Hx Patient Social History Tobacco Use?: No Use of E-Cig and/or Vaping dev: No Substance use?: No Alcohol Use?: No (CHAR,ANN-MARIEPERCY Sanchez DO) Immunizations Up To Date Tetanus Booster (TDap): More than 5yrs PED Vaccines UTD: No (CHAR,ANN-MARIE Laura KILPATRICK) Seasonal Allergies Seasonal Allergies: No (CHARANN-MARIE Laura KILPATRICK) Past Medical History Surgeries: Yes (shoulder, foot sx, umb and ing hernia) Abdominal, Cardiac, Coronary Stent, Orthopedic Respiratory: No Cardiac: Yes (X2 CARDIAC STENTS) Coronary Artery Disease, Heart Attack, High Cholesterol, Hypertension Neurological: No Reproductive Disorders: No Sexually Transmitted Disease: No HIV/AIDS: No Genitourinary: No Gastrointestinal: Yes Polyps Musculoskeletal: Yes Arthritis Endocrine: No HEENT: No Loss of Vision: Bilateral Hearing Impairment: Denies Cancer: No Psychosocial: No Integumentary: No Blood Disorders: No Adverse Reaction/Blood Tranf: No (CHARANNM-ARIE Laura KILPATRICK) Family Medical History Reviewed Nursing Family Hx (CHAR,ANN-MARIE Laura KILPATRICK) FH: Parkinson's disease 19 MOTHER FH: lung cancer 19 FATHER FH: rheumatoid arthritis G8 BROTHER FH: stroke 19 MOTHER High cholesterol 19 FATHER G8 BROTHER Hypertension G8 BROTHER Parkinson's disease 19 MOTHER Valvular heart disease 19 MOTHER No Pertinent Family Hx (CHAR,ANN-MARIE Laura KILPATRICK) Physical Exam Vital Signs Vital Signs - First Documented 01/10/22 04:20 Temp 36.8 Pulse 64 Resp 18 B/P (MAP) 139/111 (120) Pulse Ox 98 O2 Delivery Room Air (VITO MARTINEZ MD) Vital Signs Capillary Refill : (CHARANN-MARIE Laura KILPATRICK) Height, Weight, BMI Height: 5'11.00" Weight: 205lbs. 0.0oz. [id number]; 27.16 BMI Method:Stated General Appearance: No Apparent Distress, WD/WN HEENT: PERRL/EOMI, Normal ENT Inspection, Pharynx Normal Neck: Full Range of Motion, Normal Inspection, Non Tender, Supple Respiratory: Chest Non Tender, Lungs Clear, Normal Breath Sounds, No Accessory Muscle Use, No Respiratory Distress Cardiovascular: Regular Rate, Rhythm, No Edema, No Gallop, No JVD, No Murmur, Normal Peripheral Pulses Gastrointestinal: Normal Bowel Sounds, No Organomegaly, No Pulsatile Mass, Non Tender, Soft Extremity: Normal Capillary Refill, Normal Inspection, Normal Range of Motion, Non Tender, No Calf Tenderness Neurologic/Psychiatric: Alert, Oriented x3, No Motor/Sensory Deficits Skin: Normal Color, Warm/Dry (Pixia) Progress/Results/Core Measures Suspected Sepsis SIRS Temperature: Pulse: Respiratory Rate: Laboratory Tests 01/10/22 04:30: White Blood Count 8.1 Blood Pressure / Mean: Laboratory Tests 01/10/22 04:30: Creatinine 1.10, Platelet Count 277, Total Bilirubin 0.6 (Pixia) Results/Orders Lab Results Laboratory Tests Test 01/10/22 04:30 01/10/22 07:07 Range/Units White Blood Count 8.1 4.3-11.0 10^3/uL Red Blood Count 5.15 4.30-5.52 10^6/uL Hemoglobin 15.0 13.3-17.7 g/dL Hematocrit 45 40-54 % Mean Corpuscular Volume 88 80-99 fL Mean Corpuscular Hemoglobin 29 25-34 pg Mean Corpuscular Hemoglobin Concent 33 32-36 g/dL Red Cell Distribution Width 13.2 10.0-14.5 % Platelet Count 277 130-400 10^3/uL Mean Platelet Volume 9.5 9.0-12.2 fL Immature Granulocyte % (Auto) 0 % Neutrophils (%) (Auto) 58 42-75 % Lymphocytes (%) (Auto) 28 12-44 % Monocytes (%) (Auto) 11 0-12 % Eosinophils (%) (Auto) 2 0-10 % Basophils (%) (Auto) 1 0-10 % Neutrophils # (Auto) 4.6 1.8-7.8 10^3/uL Lymphocytes # (Auto) 2.3 1.0-4.0 10^3/uL Monocytes # (Auto) 0.9 0.0-1.0 10^3/uL Eosinophils # (Auto) 0.2 0.0-0.3 10^3/uL Basophils # (Auto) 0.1 0.0-0.1 10^3/uL Immature Granulocyte # (Auto) 0.0 0.0-0.1 10^3/uL Sodium Level 143 135-145 MMOL/L Potassium Level 3.9 3.6-5.0 MMOL/L Chloride Level 106 98-107 MMOL/L Carbon Dioxide Level 23 21-32 MMOL/L Anion Gap 14 5-14 MMOL/L Blood Urea Nitrogen 14 7-18 MG/DL Creatinine 1.10 0.60-1.30 MG/DL Estimat Glomerular Filtration Rate 73 BUN/Creatinine Ratio 13 Glucose Level 115 H 70-105 MG/DL Calcium Level 9.0 8.5-10.1 MG/DL Corrected Calcium 8.8 8.5-10.1 MG/DL Magnesium Level 2.1 1.6-2.4 MG/DL Total Bilirubin 0.6 0.1-1.0 MG/DL Aspartate Amino Transf (AST/SGOT) 22 5-34 U/L Alanine Aminotransferase (ALT/SGPT) 27 0-55 U/L Alkaline Phosphatase 75 40-136 U/L Troponin I 0.040 H 0.042 H <0.028 NG/ML Total Protein 7.2 6.4-8.2 GM/DL Albumin 4.2 3.2-4.5 GM/DL (VITO MARTINEZ MD) Vital Signs/I&O 01/10/22 04:20 Temp 36.8 Pulse 64 Resp 18 B/P (MAP) 139/111 (120) Pulse Ox 98 O2 Delivery Room Air (VITO MARTINEZ MD) Vital Signs/I&O Capillary Refill : (ANN-MARIE PARDO DO) Progress Note : Time: 08:16 Progress Note Patient reassessed after second troponin showed a very minimal increase of 0.04 to 0.042. He described that all night long he was uncomfortable, describing what he said was a "indigestion" type feeling in the center of his chest that was nonradiating. The patient also states that a couple of days ago he [place] the [place] office when he felt some shortness of breath. On review of the medical record his last heart cath was in 2016 and it did indicate 50 to 60% blockage in the right coronary artery. He did also have a stress test about a month ago that was read as negative however in light of known coronary disease and the positive troponin even with his A. fib, RVR I think it would be prudent to admit the patient for evaluation by cardiology. Patient is comfortable with this plan. Will discuss with Dr. Butler as Dr. Mix is out. (VITO MARTINEZ MD) ECG Comment Sinus rhythm with a rate of 61 bpm. Left axis deviation. Normal intervals. No ST or T wave abnormalities. No ectopy. (ANN-MARIE PARDO DO) Departure Communication (Admissions) Time/Spoke to Admitting Phy: 08:25 Noam Time/Spoke to Consulting Phy: 08:[address] Mix (VITO MARTINEZ MD) Impression Primary Impression: Palpitations Additional Impression: Elevated troponin Disposition: ADMITTED INPATIENT Condition: Stable Admissions Decision to Admit Reason: Admit from ER (General) Decision to Admit/Date: Jan 10, 2022 Time/Decision to Admit Time: 08:21 (VITO MARTINEZ MD) Departure-Patient Inst. Referrals: TAYLOR MARTI DO (PCP/Family) Primary Care Physician Patient Instructions: Atrial Fibrillation (DC) Add. Discharge Instructions: Continue home medications as previously prescribed. Call your anodic treater office today for further recommendations and follow-up. Return to the emergency department for any severe dizziness, lightheadedness chest pain or if your symptoms change in any way otherwise concerning to you. All discharge instructions reviewed with patient and/or family. Voiced understanding. ANN-MARIE PARDO DO Jan 10, 2022 04:37 VITO MARTINEZ MD Jan 10, 2022 08:22
[2022-01-10 04:43] LABS: BASOPHILS # (AUTO) 0.1 10^3/uL (0.0-0.1); BASOPHILS % (AUTO) 1 % (0-10); EOSINOPHILS # (AUTO) 0.2 10^3/uL (0.0-0.3); EOSINOPHILS % (AUTO) 2 % (0-10); HEMATOCRIT 45 % (40-54); LYMPHOCYTES # (AUTO) 2.3 10^3/uL (1.0-4.0); LYMPHOCYTES % (AUTO) 28 % (12-44); MEAN CORPUSCULAR HEMOGLOBIN 29 pg (25-34); MEAN CORPUSCULAR HGB CONC 33 g/dL (32-36); MEAN CORPUSCULAR VOLUME 88 fL (80-99); MEAN PLATELET VOLUME 9.5 fL (9.0-12.2); MONOCYTES # (AUTO) 0.9 10^3/uL (0.0-1.0); MONOCYTES % (AUTO) 11 % (0-12); NEUTROPHILS # (AUTO) 4.6 10^3/uL (1.8-7.8); NEUTROPHILS % (AUTO) 58 % (42-75); PLATELET COUNT 277 10^3/uL (130-400); WHITE BLOOD COUNT 8.1 10^3/uL (4.3-11.0)
[2022-01-10 04:55] LABS: ALBUMIN 4.2 GM/DL (3.2-4.5); POTASSIUM 3.9 MMOL/L (3.6-5.0)
[2022-01-10 04:57] LABS: TOTAL PROTEIN 7.2 GM/DL (6.4-8.2)
[2022-01-10 04:59] LABS: BILIRUBIN,TOTAL 0.6 MG/DL (0.1-1.0)
[2022-01-10 05:01] LABS: CREATININE SERUM 1.1 MG/DL (0.60-1.30)
[2022-01-10 05:04] LABS: MAGNESIUM 2.1 MG/DL (1.6-2.4)
[2022-01-10] MEDS ORDERED: DRONEDARONE 400 MG TABLET PO STA (10:46)
--- NOTE | 2022-01-10 10:47 | Consultation-Cardiology ---
HPI-Cardiology Cardiology Consultation Date of Consultation 01/10/22 Date of Admission Time Seen by Provider: 10:32 Indication: AFib HPI Patient is a 66 y/o male with history of CAD, PAF, NSVT. Presented to the ER with complaints of palpitations and racing heart since approx 10pm last night. By the time he arrived to ER, episode had resolved. Denies any chest pain, dyspnea, dizziness. Loop interrogation done in ER showing episode of afib, onset at approx 10pm last night, lasting for over 5 hours with average V. rate of 130. Patient reports he is now feeling much improved and asking to go home. Home Medications & Allergies Allergies: Coded Allergies: No Known Drug Allergies (Verified , 03/25/17) Home Medication List Reviewed: Yes VQC-Cxqvae-Sbsupl Hx Patient Social History Marital Status: single Employed/Student: employed Smoking Status: Never a Smoker 2nd Hand Smoke Exposure: No Recent Hopitalizations: No Have you traveled recently?: No Alcohol Use?: No Substance type: Marijuana Immunizations Up To Date Tetanus Booster (TDap): More than 5yrs Date of Pneumonia Vaccine: Feb 05, 2013 Date of Influenza Vaccine: Feb 20, 2019 Past Medical History CAD, PAF, NSVT, HTN Family Medical History Significant Family History: No Pertinent Family Hx Family History: FH: Parkinson's disease 19 MOTHER FH: lung cancer 19 FATHER FH: rheumatoid arthritis G8 BROTHER FH: stroke 19 MOTHER High cholesterol 19 FATHER G8 BROTHER Hypertension G8 BROTHER Parkinson's disease 19 MOTHER Valvular heart disease 19 MOTHER Review of Systems-General Review of Systems Constitutional: no symptoms reported, see HPI; No chills, No diaphoresis EENTM: see HPI, no symptoms reported Respiratory: no symptoms reported; No cough, No dyspnea on exertion Cardiovascular: see HPI, Hx of Intervention, palpitations; No syncope; vascular heart diseas Gastrointestinal: no symptoms reported Genitourinary: no symptoms reported Musculoskeletal: no symptoms reported, see HPI Skin: no symptoms reported Psychiatric/Neurological: No Symptoms Reported Reviewed Test Results Reviewed Test Results Lab Laboratory Tests 01/10/22 04:30: White Blood Count 8.1, Red Blood Count 5.15, Hemoglobin 15.0, Hematocrit 45, Mean Corpuscular Volume 88, Mean Corpuscular Hemoglobin 29, Mean Corpuscular Hemoglobin Concent 33, Red Cell Distribution Width 13.2, Platelet Count 277, Mean Platelet Volume 9.5, Immature Granulocyte % (Auto) 0, Neutrophils (%) (Auto) 58, Lymphocytes (%) (Auto) 28, Monocytes (%) (Auto) 11, Eosinophils (%) (Auto) 2, Basophils (%) (Auto) 1, Neutrophils # (Auto) 4.6, Lymphocytes # (Auto) 2.3, Monocytes # (Auto) 0.9, Eosinophils # (Auto) 0.2, Basophils # (Auto) 0.1, Immature Granulocyte # (Auto) 0.0, Sodium Level 143, Potassium Level 3.9, Chloride Level 106, Carbon Dioxide Level 23, Anion Gap 14, Blood Urea Nitrogen 14, Creatinine 1.10, Estimat Glomerular Filtration Rate 73, BUN/Creatinine Ratio 13, Glucose Level 115H, Calcium Level 9.0, Corrected Calcium 8.8, Magnesium Level 2.1, Total Bilirubin 0.6, Aspartate Amino Transf (AST/SGOT) 22, Alanine Aminotransferase (ALT/SGPT) 27, Alkaline Phosphatase 75, Troponin I 0.040H, Total Protein 7.2, Albumin 4.2 01/10/22 07:07: Troponin I 0.042H Physical Exam Physical Exam Vital Signs Vital Signs - First Documented 01/10/22 04:20 Temp 36.8 Pulse 64 Resp 18 B/P (MAP) 139/111 (120) Pulse Ox 98 O2 Delivery Room Air Capillary Refill : Less Than 3 Seconds Height, Weight, BMI Height: 5'11.00" Weight: 205lbs. 0.0oz. 92.390189mj; 27.00 BMI Method:Stated General Appearance: No Apparent Distress, WD/WN HEENT: PERRL/EOMI, Normal ENT Inspection, Pharynx Normal Neck: Full Range of Motion, Normal Inspection, Non Tender, Supple Respiratory: Chest Non Tender, Lungs Clear, Normal Breath Sounds, No Accessory Muscle Use, No Respiratory Distress Cardiovascular: Regular Rate, Rhythm, No Edema, No Gallop, No JVD, No Murmur, Normal Peripheral Pulses Gastrointestinal: Normal Bowel Sounds, No Organomegaly, No Pulsatile Mass, Non Tender, Soft Extremity: Normal Capillary Refill, Normal Inspection, Normal Range of Motion, Non Tender, No Calf Tenderness Neurologic/Psychiatric: Alert, Oriented x3, No Motor/Sensory Deficits Skin: Normal Color, Warm/Dry A/P-Cardiology Admission Diagnosis PAF CAD HTN HLP Assessment/Plan Paroxysmal atrial fibrillation, had episode of afib with RVR, onset at approx 10pm last night, lasting for over 5 hours, now resolved. Currently back to SR. 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 Status post LINq implantation on 09/06/21, Xarelto was restarted in November 2021 after noting episode of afib on his monitor. Will continue on Xarelto, add Multaq 400mg BID, referral to Dr. Estrada for further management and discussion of possible ablation. Mildly elevated troponin, likely type II AL, possibly d/t tachycardia. Will continue to monitor Coronary artery disease-history of non-STEMI August 31, 2015. Patient underwent diagnostic cardiac catheterization by then transferred to [place] under the care of Dr. Camargo. Underwent complex intervention with T stenting with 3.016 mm Promus stent extending from the left main into the circumflex. Then dilated through the interstices of the stent into the LAD and advanced a 2.516 mm Promus stent which was placed in a T fashion so that the left main, circumflex, and LAD bifurcations were all completely covered with stent. Repeat cardiac catheterization done February 15, 2016 revealed patent stent in the left main, extending to the circumflex artery and patent ostial LAD stent, extending to the left main stent. Mild disease distally. 50-60 percent proximal RCA stenosis, nonobstructive disease. Stress test was done in September 2021 revealing good exercise tolerance with total of 9 minutes with no ischemia or infarct Ventricular tachycardia-patient had 6 second run of ventricular tachycardia noted on his Linq device on July 05, 2016 at 2 a.m. Patient was asleep during the event. Denies any dizziness or lightheadedness. No further episodes of been detected. CMP and magnesium levels within normal limits. Underwent evaluation by Dr. Estrada. MRI was done at showing small scar tissue, underwent EP study which did not reproduce any arrhythmia. Recommendation was for conservative management and monitoring him as an outpatient. Has been asymptomatic. 2D Echo done September 05, 2021 showing normal LV, EF 55-60%. Grade 1 diastolic dysfunction. Dilated right atrium, mild MR. PA 30-35mmHg Mild hyperkalemia in the past, last metabolic profile was normal. Hypertension, reporting good blood pressure control at home. Continue to monitor Hyperlipidemia, has stopped Lipitor in June 2019 due to myopathy and weakness. Currently maintained on low dose Crestor. Has infrequent myopathy, I do not think it is related to his statin. Lipids done August 2021 showing total cholesterol 149, HDL 32, LDL 95, trig 111 Myopathy, weakness in the legs after exercise, happening occasionally He has seen Dr. Cummings in the past, workup was negative. Mild carotid stenosis, ultrasound was done in August 2021. Family history of coronary artery disease Thank you for allowing us to participate in the management of Mr. Jin. This is Paulette Geronimo PA-C, as a scribe for Dr. Mix. Patient was seen and evaluated with Paulette, I interviewed and examined the patient He had paroxysmal atrial fibrillation with rapid ventricular response, returned to sinus rhythm, has been maintained on Xarelto I will add Multaq 400 mg twice daily, monitor his tolerance and response I am considering referral for EP evaluation as an outpatient for possible ablation of the atrial fibrillation Patient had mild elevation in troponin, most probably type II myocardial infarction, he is known to have underlying coronary artery disease, last stress test was done in September 2021 showing good exercise tolerance for a total of 9 minutes on Leandro protocol with no significant ischemia or infarct. Continue and restart home medication monitor blood pressure. PAULETTE BEAVERS Jan 10, 2022 10:47 CONCHIS MIX MD Jan 10, 2022 16:51
[2022-01-10] MEDS ORDERED: ONDANSETRON 4 MG/2 ML (SDV) Z0FRAN IVP PRN (11:15)
[2022-01-10] MEDS ORDERED: PATIENT MAY USE OWN MEDS, ALL PO SCH (11:15)
[2022-01-10] MEDS ORDERED: NITROGLYCERIN 0.4 MG SL TABS BTL 25'S SL PRN (11:15)
[2022-01-10] MEDS ORDERED: morphine INJ 4 MG/ML 1 ML (VIAL/SYRINGE) IV PRN (11:15)
[2022-01-10] MEDS ORDERED: UBID100C17 PO (13:28)
[2022-01-10] MEDS ORDERED: RIVA20TA PO (13:28)
[2022-01-10] MEDS ORDERED: CHOL20002 PO (13:28)
[2022-01-10] MEDS ORDERED: ASCO500T75 PO (13:28)
[2022-01-10] MEDS ORDERED: ROSU5TAB13 PO (13:28)
[2022-01-10] MEDS ORDERED: LIDOCAINE 1% INJ 20 ML VIAL ONE (13:37)
[2022-01-10] MEDS ORDERED: HEParin (CATH LAB) 0 ML IV ONE (13:37)
--- NOTE | 2022-01-10 14:09 | History & Physical-Hospitalist ---
History of Present Illness HPI/Chief Complaint Patient is a 66-year-old male with past medical history of coronary artery disease, atrial fibrillation, hypertension, hyperlipidemia who presented to the emergency department due to palpitations. He reports that he normally attends [employer] at 5 AM and so attempted to go to bed early last night around 9. He laid down and just did not feel well and his heart was racing. He thought he had lightheadedness as well. This continued throughout the night and he finally decided to get up and seek evaluation in the emergency department. On arrival here he was in sinus rhythm with rates in the 60s but he had a mildly elevated troponin. This was trended and remained elevated. Cardiology interrogated his loop recorder and found that he had an episode of atrial fibrillation for roughly 5 hours last night. He is being admitted for further management. When I saw him he was resting comfortably in the ICU and had no complaints Source: patient Date Seen 01/10/22 Time Seen by a Provider: 14:04 Attending Physician Scotty Clifford DO PCP Admitting Physician: Cami Santacruz MD Attending Physician: Cami Santacruz MD Referring Physician Date of Admission Jan 10, 2022 at 08:26 Home Medications & Allergies Home Medications Reviewed patient Home Medication Reconciliation performed by pharmacy medication reconciliations autocad technician and/or nursing. Patients Allergies have been reviewed. Allergies Allergies Coded Allergies No Known Drug Allergies ([id number]/4/17) Past Hygnxyi-Zqztcu-Oxgckl Hx Patient Social History Marrital Status: single Employed/Student: employed Tobacco Use?: No Smoking Status: Never a Smoker Use of E-Cig and/or Vaping dev: No Substance use?: No Substance type: Marijuana Substance frequency: Couple times a week Alcohol Use?: Yes Alcohol Frequency: Rarely Pt feels they are or have been: No Immunizations Up To Date Date of Influenza Vaccine: Feb 20, 2019 First/Initial COVID19 Vaccinat: ? Second COVID19 Vaccination Will: ? Hepatitis A: Yes Hepatitis B: Yes PED Vaccines UTD: No Date of Pneumonia Vaccine: Feb 05, 2013 Seasonal Allergies Seasonal Allergies: No Current Status Advance Directives: Yes Advance Directive Location: Copy from prev record Communicates: Verbally Primary Language: [place] Preferred Spoken Language: [place] Is interpretation needed?: No Implanted or Applied Medical D: Stents Past Medical History Surgeries: Abdominal, Cardiac, Coronary Stent, Orthopedic Coronary Artery Disease, Heart Attack, High Cholesterol, Hypertension Sexually Transmitted Disease: No HIV/AIDS: No Polyps Arthritis Loss of Vision: Bilateral Hearing Impairment: Denies Blood Disorders: No Adverse Reaction/Blood Tranf: No Family Medical History Reviewed Nursing Family Hx FH: Parkinson's disease 19 MOTHER FH: lung cancer 19 FATHER FH: rheumatoid arthritis G8 BROTHER FH: stroke 19 MOTHER High cholesterol 19 FATHER G8 BROTHER Hypertension G8 BROTHER Parkinson's disease 19 MOTHER Valvular heart disease 19 MOTHER No Pertinent Family Hx Review of Systems Constitutional: No chills, No fever EENTM: no symptoms reported Respiratory: no symptoms reported, short of breath (last week) Cardiovascular: see HPI; No chest pain, No edema; Hx of Intervention, palpitations; No syncope Gastrointestinal: no symptoms reported Genitourinary: no symptoms reported Musculoskeletal: no symptoms reported Skin: no symptoms reported Psychiatric/Neurological: No Symptoms Reported Physical Exam Physical Exam Vital Signs Vital Signs - First Documented 01/10/22 04:20 Temp 36.8 Pulse 64 Resp 18 B/P (MAP) 139/111 (120) Pulse Ox 98 O2 Delivery Room Air Capillary Refill : Less Than 3 Seconds Height, Weight, BMI Height: 5'11.00" Weight: 205lbs. 0.0oz. [id number]; 28.42 BMI Method:Stated General Appearance: No Apparent Distress, WD/WN HEENT: PERRL/EOMI, Moist Mucous Membranes; No Scleral Icterus (L), No Scleral Icterus (R) Neck: Normal Inspection, Supple; No JVD Respiratory: Lungs Clear, No Accessory Muscle Use, No Respiratory Distress Cardiovascular: Regular Rate, Rhythm, No JVD, No Murmur Gastrointestinal: Normal Bowel Sounds, Non Tender, Soft Extremity: Normal Capillary Refill, No Calf Tenderness, No Pedal Edema Neurologic/Psychiatric: Alert, Oriented x3, Normal Mood/Affect; No Aphasia, No Facial Droop Results Results/Procedures Labs Laboratory Tests 01/10/22 04:30 Patient resulted labs reviewed. Assessment/Plan Admission Diagnosis Atrial fibrillation Admission Status: Observation Assessment and Plan Atrial fibrillation Elevated Troponin- Type II [place] Dr Mix interrogated loop recorder which revealed a fib with RVR for 5 hours last night Troponin mildly elevated and stable on repeat- likely from RVR Dr Mix has call out to EP to discuss possible need for ablation Continue Xarelto for stroke prophylaxis Multaq given this AM HTN HLD Continue home meds as able DVT ppx: Already on therapuetic anticoagulation Diagnosis/Problems Diagnosis/Problems (1) Essential (primary) hypertension (2) HLD (hyperlipidemia) (3) A-fib (4) Elevated troponin Status: Acute (5) CAD (coronary artery disease) CAMI SANTACRUZ MD Jan 10, 2022 14:09
[2022-01-10] MEDS ORDERED: RIVAROXABAN 20 MG TABLET (XARELTO) PO SCH (17:30)
[2022-01-10] MEDS: lisINopril 10 MG (PRINIVIL) TABLET PO SCH (17:34)
[2022-01-10] MEDS ORDERED: ROSUVASTATIN 5 MG (CRESTOR) TABLET PO SCH (21:00)
[2022-01-10] MEDS: DRONEDARONE 400 MG TABLET PO SCH (21:02)
[2022-01-11 05:21] LABS: TRIGLYCERIDES 101 MG/DL (<150); VLDL CHOLESTEROL 20 MG/DL (5-40)
[2022-01-11 05:26] LABS: CHOLESTEROL 132 MG/DL (< 200)
[2022-01-11 05:27] LABS: HDL CHOLESTEROL 32 MG/DL (40-60)
[2022-01-11] MEDS ORDERED: DRON400T6 PO (06:45)
--- NOTE | 2022-01-11 08:11 | Discharge Summary ---
Diagnosis/Chief Complaint Date of Admission Jan 10, 2022 at 08:26 Date of Discharge Admission Diagnosis Atrial fibrillation Primary Care Scotty Clifford DO Discharge Diagnosis (1) Essential (primary) hypertension (2) HLD (hyperlipidemia) (3) A-fib (4) Elevated troponin Status: Acute (5) CAD (coronary artery disease) Discharge Summary Procedures/Consulations Dr Mix- Cardiology Discharge Physical Exam Allergies: Coded Allergies: No Known Drug Allergies (Verified , 03/25/17) Vitals & I&Os Vital Signs Date Time Temp Pulse Resp B/P (MAP) Pulse Ox O2 Delivery O2 Flow Rate FiO2 01/11/22 07:54 37.0 01/11/22 04:00 99 Room Air 01/11/22 01:18 54 01/11/22 00:00 20 123/83 (96) General Appearance: No Apparent Distress, WD/WN Cardiovascular: Regular Rate, Rhythm, No Murmur Gastrointestinal: Normal Bowel Sounds, Soft Neurologic/Psychiatric: Alert, Oriented x3 Hospital Course Patient was admitted to the hospital secondary to elevated troponin and atrial fibrillation with rapid ventricular rate. Loop recorder was interrogated and revealed 5-hour episode of A. fib with RVR. His troponin was trended and was stable. Dr. Mix discussed case with Dr. Hagen at who recommends outpatient follow-up. He will was started on Multaq while here and this will be continued upon discharge. He is to follow-up with cardiology as stated above and with his primary care doctor to follow-up this hospital stay. Labs (last 24 hrs) Laboratory Tests 01/10/22 14:50: Troponin I 0.041H 01/11/22 04:56: Triglycerides Level 101, Cholesterol Level 132, LDL Cholesterol Direct 84, VLDL Cholesterol 20, HDL Cholesterol 32L Patient resulted labs reviewed. Pending Labs Laboratory Tests 01/11/22 04:56: Triglycerides Level 101, Cholesterol Level 132, LDL Cholesterol Direct 84, VLDL Cholesterol 20, HDL Cholesterol 32 Discussion & Recommendations Discharge Planning: >30 minutes discharge planning Discharge Home Medications: Active Scripts Active Multaq (Dronedarone HCl) 400 Mg Tablet 400 Mg PO BID Reported Coq-10 (Ubidecarenone) 100 Mg Capsule 100 Mg PO DAILY Vitamin D3 (Cholecalciferol (Vitamin D3)) 50 Mcg (2000 Unit) Capsule 50 Mcg PO DAILY Xarelto (Rivaroxaban) 20 Mg Tablet 20 Mg PO DAILY Rosuvastatin Calcium 5 Mg Tablet 5 Mg PO HS Vitamin C with Lucia Hips (Ascorbic Acid) 500 Mg Tablet 500 Mg PO HS Carvedilol 12.5 Mg Tablet 12.5 Mg PO BID Lisinopril 10 Mg Tablet 10 Mg PO DAILY Aspirin EC (Aspirin) 81 Mg Tablet.dr 81 Mg PO DAILY Instructions to patient/family Please see electronic discharge instructions given to patient. HUGO SHAFFER MD Jan 11, 2022 08:11
--- NOTE | 2022-01-11 08:12 | Discharge Inst-Simple/Standard ---
Discharge Inst-Standard Discharge Medications New, Converted or Re-Newed RX: Transmitted to Pharmacy Patient Instructions/Follow Up Plan of Care/Instructions/FU: Please continue to take your medications as written. Please follow up with your primary care doctor to follow up this hospital stay. Activity as Tolerated: Yes Discharge Diet: Cardiac Diet Return to The Hospital For: Chest pain, shortness of breath, fever, weakness, if you feel you are getting worse. HUGO SHAFFER MD Jan 11, 2022 08:12
--- NOTE | 2022-01-11 08:22 | Cardiology Progress Note ---
Subjective Date Seen by Provider: Jan 11, 2022 Time Seen by Provider: 08:22 Subjective/Events-last exam Patient was seen at bedside, laying down comfortably, no further episodes of arrhythmia. Review of Systems General: No Chills, No Night Sweats, No Fatigue, No Malaise, No Appetite, No Other HEENT: No Head Aches, No Visual Changes, No Eye Pain, No Ear Pain, No Dysphasia, No Sinus Congestion, No Post Nasal Drip, No Sore Throat, No Other Pulmonary: No Dyspnea, No Cough, No Pleuritic Chest Pain, No Other Cardiovascular: No: Chest Pain, Palpitations, Orthopnea, Paroxysmal Noc. Dyspnea, Edema, Lt Headedness, Other Objective-Cardiology Exam Last Set of Vital Signs Vital Signs 01/11/22 01/11/22 01/11/22 01/11/22 00:00 04:00 07:00 07:54 Temp 37.0 Pulse 64 Resp 20 B/P (MAP) 123/83 (96) Pulse Ox 99 O2 Delivery Room Air I&O Intake and Output 01/11/22 00:00 Intake Total 2060 ml Output Total 1200 ml Balance 860 ml Intake Oral 2060 ml Output Urine Total 1200 ml # Voids 1 Daily Weight Change No General: Alert, Oriented X3, Cooperative HEENT: Atraumatic, PERRLA Neck: Supple, No JVD, No Thyromegaly Lungs: Clear to Auscultation, Normal Air Movement Heart: Regular Rate, Normal S1, Normal S2, No Murmurs Abdomen: Normal Bowel Sounds, Soft, No Tenderness, No Hepatosplenomegaly, No Masses Extremities: No Clubbing, No Cyanosis, No Edema, Normal Pulses, No Tenderness/Swelling Skin: No Rashes, No Breakdown, No Significant Lesion Neuro: Normal Gait, Normal Speech, Strength at 5/5 X4 Ext, Normal Tone, Sensation Intact Psych/Mental Status: Mental Status NL, Mood NL A/P-Cardiology Admission Diagnosis PAF CAD HTN HLP Assessment/Plan Paroxysmal atrial fibrillation, had episode of afib with RVR, onset at approx 10pm last night, lasting for over 5 hours, now resolved. Currently back to SR. 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 Status post LINq implantation on 09/06/21, Xarelto was restarted in November 2021 a fter noting episode of afib on his monitor. Will continue on Xarelto, add Multaq 400mg BID. I discussed management plan with Dr. Estrada and will arrange for follow-up with him as an outpatient Mildly elevated troponin, likely type II [place], possibly d/t tachycardia. Monitoring troponin showing flat level, did not increase over 0.041 Conservative management is recommended, patient had a recent stress test showing no ischemia or infarction. Coronary artery disease-history of non-STEMI August 31, 2015. Patient underwent diagnostic cardiac catheterization by then transferred to [facility] under the care of Dr. Camargo. Underwent complex intervention with T stenting with 3.016 mm Promus stent extending from the left main into the circumflex. Then dilated through the interstices of the stent into the LAD and advanced a 2.516 mm Promus stent which was placed in a T fashion so that the left main, circumflex, and LAD bifurcations were all completely covered with stent. Repeat cardiac catheterization done February 15, 2016 revealed patent stent in the left main, extending to the circumflex artery and patent ostial LAD stent, extending to the left main stent. Mild disease distally. 50-60 percent proximal RCA stenosis, nonobstructive disease. Stress test was done in September 2021 revealing good exercise tolerance with total of 9 minutes with no ischemia or infarct Ventricular tachycardia-patient had 6 second run of ventricular tachycardia noted on his Linq device on July 05, 2016 at 2 a.m. Patient was asleep during the event. Denies any dizziness or lightheadedness. No further episodes of been detected. CMP and magnesium levels within normal limits. Underwent evaluation by Dr. Estrada. MRI was done at showing small scar tissue, underwent EP study which did not reproduce any arrhythmia. Recommendation was for conservative management and monitoring him as an outpatient. Has been asymptomatic. 2D Echo done September 05, 2021 showing normal LV, EF 55-60%. Grade 1 diastolic dysfunction. Dilated right atrium, mild MR. PA 30-35mmHg Mild hyperkalemia in the past, last metabolic profile was normal. Hypertension, reporting good blood pressure control at home. Continue to monitor Hyperlipidemia, has stopped Lipitor in June 2019 due to myopathy and weakness. Currently maintained on low dose Crestor. Has infrequent myopathy, I do not think it is related to his statin. Lipids done August 2021 showing total cholesterol 149, HDL 32, LDL 95, trig 111 Myopathy, weakness in the legs after exercise, happening occasionally He has seen Dr. Cummings in the past, workup was negative. Mild carotid stenosis, ultrasound was done in August 2021. Family history of coronary artery disease CONCHIS ALCOCER MD Jan 11, 2022 08:22
[2022-01-11] MEDS ORDERED: ASPIRIN E.C. 81 MG (ECOTRIN) TAB PO SCH ×2 (09:00)
[2022-01-11] MEDS ORDERED: lisINopril 10 MG (PRINIVIL) TABLET PO SCH (09:00)
[2022-01-11] MEDS: DRONEDARONE 400 MG TABLET PO SCH (09:05)
[2022-01-11] MEDS: lisINopril 10 MG (PRINIVIL) TABLET PO SCH (09:06)
[2022-01-11 09:24] VITALS: BP 123/83
== END 2022-01-11 09:07 | disposition home or self-care (01) ==
LOC: EDUNIT# 04:12 → ER 04:15 → ICU 08:26 → UNDOADMOB 08:26 → ICU 11:21 → UNDODISOB 01-11 09:07
PROVIDERS: ADMIT Family Medicine; ATTEND Family Medicine
DX: I48.91 Unspecified atrial fibrillation (principal); E78.5 Hyperlipidemia, unspecified; I10 Essential (primary) hypertension; I25.10 Atherosclerotic heart disease of native coronary artery without angina pectoris
CPT/HCPCS: 80053; 80061; 83735; 84484; 85025; 93005; 99284; G0378; 36415